=== PATIENT | female | born 1955 | race American Indian/Alaskan Native ===

== ENCOUNTER 2017-04-07 09:41 | Emergency (ER) | payer OTHER ==
[2017-04-07 10:24] VITALS: BP 128/88
[2017-04-07 10:53] LABS: Basophils % (Auto) 0.4 % (0.0-1.8); Eosinophils % (Auto) 0.5 % (0.0-4.3); Hematocrit 38.3 % (30.3-42.9); Hemoglobin 13.3 gm/dl (10.1-14.3); Mean Corpuscular HGB Conc 35 % (30-34); Mean Corpuscular Hemoglobin 32 pg (28-32); Mean Corpuscular Volume 92 fl (79-97); Platelet Count 293 K/mm3 (140-440); Red Blood Count 4.18 M/mm3 (3.65-5.03); Red Cell Distribution Width 12.8 % (13.2-15.2); White Blood Count 8.1 K/mm3 (4.5-11.0)
[2017-04-07 11:05] LABS: Anion Gap 21 mmol/L; BUN/Creatinine Ratio 11; Blood Urea Nitrogen 8 mg/dL (7-17); Calcium 9.5 mg/dL (8.4-10.2); Carbon Dioxide 27 mmol/L (22-30); Chloride 99.3 mmol/L (98-107); Glucose 97 mg/dL (65-100); Potassium 4.3 mmol/L (3.6-5.0); Sodium 143 mmol/L (137-145)
== END 2017-04-07 10:31 | disposition left against medical advice (07) ==
LOC: ED 09:41
DX: R07.9 Chest pain, unspecified (principal); Z53.21 Procedure and treatment not carried out due to patient leaving prior to being seen by health care provider
CPT/HCPCS: 36415; 80048; 84484; 85025; 93005; 93010

== ENCOUNTER 2017-07-11 07:50 | Outpatient (CLI) | payer OTHER ==
--- NOTE | 2017-07-11 09:17 | Mammography Report ---
BILATERAL MAMMOGRAM: FINDINGS: The breast tissue is heterogeneously dense, which could obscure detection of small masses (approximately 50%-75% glandular). No mass, distortion, suspicious calcification, or skin change is seen. No significant change when compared to prior exam in March 2016. CAD was utilized. IMPRESSION: Negative mammogram. There is no mammographic evidence of malignancy. RECOMMENDATION: Follow-up per ACS guidelines. BI-RADS CATEGORY: 1 = Negative ACR BI-RADS MAMMOGRAPHIC CODES: 0 = Needs additional imaging evaluation; 1 = Negative; 2 = Benign; 3 = Probably benign; 4 = Suspicious; 5 = Malignant; 6 = Known biopsy-proven malignancy COMMENT: 1. Dense breast tissue, i.e., adenosis, fibrocystic changes, etc., may obscure an underlying neoplasm. 2. Approximately 10% of cancers are not detected with mammography. 3. A negative mammography report should not delay biopsy if a clinically suspicious mass is present. COMMENT: Patient follow-up letters are generated in [facility].
== END 2017-07-11 07:51 | disposition home or self-care (01) ==
LOC: MAMMO 07:50
PROVIDERS: ATTEND Family Medicine Adult Medicine
DX: Z12.31 Encounter for screening mammogram for malignant neoplasm of breast (principal)
CPT/HCPCS: 77067

== ENCOUNTER 2017-10-23 10:54 | Outpatient (CLI) | payer OTHER ==
--- NOTE | 2017-10-23 14:54 | Magnetic Resonance Report ---
MRI LUMBAR SPINE WITHOUT CONTRAST HISTORY: Low back pain. TECHNIQUE: axial T1, T2. sagittal T1,T2, STIR. COMPARISON: none. FINDINGS: The conus terminates at L1-2. No signal abnormality or mass. The cauda equina is within normal limits. No central canal stenosis. Normal height and alignment of the lumbar vertebra. The facet joints are in appropriate relationship. Minimal arthritic changes are noted throughout the facet joints. Normal bone marrow signal. No acute fracture or suspicious bone lesion. There is mild disc desiccation throughout the lumbar region. Mild disc space narrowing at L5-S1. L1-2: No significant abnormality. L2-3: No significant abnormality. L3-4: No significant abnormality. L4-5: No significant abnormality. L5-S1: Mild disc space narrowing is again noted. Mild diffuse posterior bulging disc is identified. There is mild bilateral neural foraminal narrowing estimated at 25% on the right and 50% on the left. IMPRESSION: Lumbar spondylosis as described. L5-S1 is the most affected level. No evidence for fracture, malalignment or bone lesion.
== END 2017-10-23 10:55 | disposition home or self-care (01) ==
LOC: MRI 10:54
PROVIDERS: ATTEND Internal Medicine Adolescent Medicine
DX: M48.07 Spinal stenosis, lumbosacral region (principal); M51.27 Other intervertebral disc displacement, lumbosacral region; M47.897 Other spondylosis, lumbosacral region
CPT/HCPCS: 72148

== ENCOUNTER 2018-07-31 08:24 | Outpatient (CLI) | payer OTHER ==
--- NOTE | 2018-08-01 14:07 | Mammography Report ---
BILATERAL DIGITAL SCREENING MAMMOGRAM with CAD: 07/31/18 08:24:00 CLINICAL: Routine screening. COMPARISON:07/11/17 FINDINGS: The breasts are heterogeneously dense, which may obscure small masses. A spiculated left focal asymmetry requires additional imaging. Large benign left calcifications and small benign heavily calcified masses. No architectural distortion or suspicious calcifications.The right breast is negative with a 1 cm heavily calcified lower outer posterior benign mass. IMPRESSION: Left asymmetry requiring further workup. BI-RADS CATEGORY: 0 -- Additional Imaging Evaluation Required RECOMMENDATION: Recall for left LM and MLO and CC spot magnification views and left breast ultrasound. ACR BI-RADS MAMMOGRAPHIC CODES: 0 = Needs additional imaging evaluation; 1 = Negative; 2 = Benign; 3 = Probably benign; 4 = Suspicious; 5 = Malignant; 6 = Known biopsy-proven malignancy COMMENT: 1. Dense breast tissue, i.e., adenosis, fibrocystic changes, etc., may obscure an underlying neoplasm. 2. Approximately 10% of cancers are not detected with mammography. 3. A negative mammography report should not delay biopsy if a clinically suspicious mass is present. COMMENT: Patient follow-up letters are generated via our [employer] application.
== END 2018-07-31 08:25 | disposition home or self-care (01) ==
LOC: MAMMO 08:24
PROVIDERS: ATTEND Family Medicine Adult Medicine
DX: Z12.31 Encounter for screening mammogram for malignant neoplasm of breast (principal); Z90.49 Acquired absence of other specified parts of digestive tract
CPT/HCPCS: 77067

== ENCOUNTER 2019-03-06 09:58 | Outpatient (CLI) | payer OTHER ==
--- NOTE | 2019-03-06 16:34 | Ultrasound Report ---
LEFT DIGITAL DIAGNOSTIC MAMMOGRAM WITH CAD -- 03/06/2019 LEFT LIMITED BREAST ULTRASOUND INDICATION: Follow-up asymmetry. TECHNIQUE: Digital left mammographic imaging was performed. Spot compression and magnification views were obtained. This examination was interpreted with the benefit of Computer-Aided Detection (CAD) trice siddiqui. COMPARISON: 07/31/2018 screening mammogram. FINDINGS: Breast Density: There are scattered areas of fibroglandular density. MAMMOGRAPHIC FINDINGS: The previously identified spiculated asymmetry demonstrates satisfactory effac ement with spot magnification. Rolled CC and lateral views are negative. ULTRASOUND FINDINGS: Targeted ultrasound evaluation was performed of the area of interest. Ultrasou nd of the left breast was performed from 9:00 to 12:00 and demonstrated several solid hypoechoic shad owing masses which appear to correlate with calcified oil cysts on the mammogram. They measure 7 x 6 x 4 mm, 9 x 8 x 6 mm and 4 x 3 x 6 mm. The certified nuclear medicine technologist also reported that there is an obv ious palpable lump in the area of interest in the upper outer quadrant. IMPRESSION: A suspicious palpable lump in the upper outer quadrant which may or may not correlate wit h several areas of benign fat necrosis. Recommend consultation with a breast surgeon to determine if biopsy is indicated based on palpable findings. Follow up recommendation: Surgical consult BI-RADS Category 4: Suspicious for Malignancy. A "normal" or negative report should not discourage follow up or biopsy of a clinically significant f inding. A written summary of these findings will be mailed to the patient. The patient will be entered into a mammography reporting system which will generate a reminder letter for the patient's next appointmen t at the appropriate interval. According to the [employer], yearly mammograms are recommended starting at age 40 and continuing as long as a woman is in good health. Breast MRI is recommended for women with an jenna roximately 20-25% or greater lifetime risk of breast cancer, including women with a strong family his tory of breast or ovarian cancer and women who have been treated for Hodgkin's disease. Signer Name: Eugene Alegria MD Signed: 03/06/2019 4:29 PM Workstation Name: [id number]
== END 2019-03-06 09:59 | disposition home or self-care (01) ==
LOC: MAMMO 09:58
PROVIDERS: ATTEND Family Medicine Adult Medicine
DX: R92.8 Other abnormal and inconclusive findings on diagnostic imaging of breast (principal)

== ENCOUNTER 2019-04-11 12:56 | Outpatient (CLI) | payer OTHER ==
--- NOTE | 2019-04-11 15:21 | Ultrasound Report ---
ULTRASOUND-GUIDED NEEDLE CORE BIOPSY LEFT BREAST WITH CLIP PLACEMENT CLINICAL: Left palpable breast mass at 11:00 7 cm from the nipple FINDINGS: The procedure was explained to the patient and informed consent was obtained. Ultrasound demonstrated a palpable mass at 11:00 7 cm from the nipple. The mass is predominantly hype rechoic. There is a central hypoechoic component with shadowing. I marked the breast with a felt tip marker and a timeout was called. The skin was prepped with Chloro -Prep and anesthetized with 1% lidocaine. Needle core biopsy was performed through small dermatotomy using ultrasound guidance, 2% lidocaine wi th epinephrine for deep anesthesia and a 14-gauge Achieve biopsy device. 5 cores were obtained and pl aced in formalin. A clip was deployed within the lesion. The patient tolerated the procedure well and there were no apparent complications. Hemostasis was ach ieved with minimal effort and a sterile dressing was applied. A post procedure mammogram demonstrated concordant clip deployment. She left the department in good c ondition and was given instructions for wound care and follow-up. IMPRESSION: Uncomplicated ultrasound guided needle core biopsy with clip placement left breast. Signer Name: Eugene Alegria MD Signed: 04/11/2019 3:17 PM Workstation Name: [id number]
--- NOTE | 2019-04-11 15:24 | Mammography Report ---
LEFT DIGITAL DIAGNOSTIC MAMMOGRAM CLINICAL: For clip placement after ultrasound-guided needle biopsy. COMPARISON: 03/06/2019 FINDINGS: A biopsy clip is now identified at 11:00 and correlates with a mammographic asymmetry in th e area with several heavily calcified oil cysts. IMPRESSION: Concordant clip deployment. Signer Name: Eugene Alegria MD Signed: 04/11/2019 3:20 PM Workstation Name: [id number]
== END 2019-04-11 12:57 | disposition home or self-care (01) ==
LOC: SPVWC 12:56
PROVIDERS: ATTEND Surgery
DX: N63.22 Unspecified lump in the left breast, upper inner quadrant (principal); C50.212 Malignant neoplasm of upper-inner quadrant of left female breast; Z79.899 Other long term (current) drug therapy; Z90.49 Acquired absence of other specified parts of digestive tract
CPT/HCPCS: 19083; 77065; 88305; 88342; 88361; 88368; A4648

== ENCOUNTER 2019-05-01 10:23 | Outpatient (CLI) | payer OTHER ==
--- NOTE | 2019-05-02 09:55 | Magnetic Resonance Report ---
BILATERAL BREAST MR WITHOUT AND WITH GADOLINIUM INDICATION: Newly diagnosed left breast cancer. Status post left ultrasound-guided needle biopsy with pathology demonstrating invasive lobular carcinoma, ER/MS positive, HER-2 equivocal (pen ding FISH) and Ki-67 25%. COMPARISONS: 07/31/2018 and 03/06/2019 and 04/11/2019 mammograms TECHNIQUE: Axial 1.0 mm T1 without, axial high-resolution 2.0 mm T2 and axial 1.0 mm dynamic vibrant high-resolution postcontrast T1 fat saturation sequences on a 1.5 Cailin magnet. The examination was p erformed with an 8-channel dedicated [place] breast coil. Post-processing with CAD and subtraction was performed on an [employer] workstation. 13.0 cc of MultiHance was injected without incident for the c ontrast portion of the exam. Consent was obtained prior to the administration of the contrast. FINDINGS: RIGHT BREAST: Minimal background parenchymal enhancement. No mass or suspicious enhancement. No suspi cious right axillary or right internal mammary lymph nodes. LEFT BREAST: Minimal background parenchymal enhancement. The known cancer is a heterogeneously enhanc ing lesion in the upper inner quadrant 8.5 cm from the nipple. It consists of a 13 mm mass along with multiple foci of nonmass enhancement. Together the mass and nonmass enhancement measures approximate ly 3.0 x 2.3 x 1.1 cm. The predominant pattern of enhancement is a peak enhancement of 167%, 28% type I persistent, 72% type II plateau an 0% type III washout waveforms. The 13 mm mass demonstrates 93% type I persistent, 7% type II plateau an 0% type III washout waveforms. The biopsy clip is at the ant erior aspect of the lesion and the mass is at the posterior aspect of the lesion. The mass is also id entified mammographically. No other mass or suspicious enhancement. No suspicious left axillary or le ft internal mammary lymph nodes. IMPRESSION: 1. Known left breast cancer measuring 3.0 x 2.3 x 1.1 cm. Recommend bracketed wire localization at th e time of surgical excision to include the anterior biopsy clip and the posterior mammographic mass. 2. No other suspicious lesion of either breast. 3. No suspicious lymph nodes. BI-RADS Category 6: Known cancer Signer Name: Eugene Alegria MD Signed: 05/02/2019 9:50 AM Workstation Name: [id number]
== END 2019-05-01 10:24 | disposition home or self-care (01) ==
LOC: SPVIMAG 10:23
PROVIDERS: ATTEND Surgery
DX: C50.212 Malignant neoplasm of upper-inner quadrant of left female breast (principal); Z90.49 Acquired absence of other specified parts of digestive tract
CPT/HCPCS: A9577; C8908; 77049

== ENCOUNTER 2019-05-29 06:20 | Day surgery (SDC) | payer OTHER ==
[~2019-05-29 06:20] MED LIST: CELECOXIB 200 MG CAP PO NR; GABAPENTIN 300 MG CAP PO NR; LACTATED RINGERS 1,000 ML IV SCH; WATER FOR IRRIG STERILE 1,500 ML BOTTLE IR ONE; ceFAZolin/Water 2 GM/20 ML 2 GM/20 ML SYRINGE IV NR; fentaNYL 100 MCG/2 ML INJ IV PRN
[2019-05-29] MEDS ORDERED: BACTERIOSTATIC SODIUM CHLORIDE 0.9% 30 ML VIAL INFILTRATI ONE (07:05)
--- NOTE | 2019-05-29 07:16 | Anesthesia Day of Surgery ---
Anesthesia Day of Surgery - Day of Surgery Patient Examined: Yes Patient H&P Reviewed: Yes Patient is NPO: Yes
--- NOTE | 2019-05-29 07:22 | Anesthesia Consultation ---
Anesthesia Consult and Med Hx Date of service: 05/29/19 - Airway Anesthetic Teeth Evaluation: Good, Partials ROM Head & Neck: Adequate Mental/Hyoid Distance: Adequate Mallampati Class: Class I Intubation Access Assessment: Good - Pre-Operative Health Status ASA Pre-Surgery Classification: ASA2 Proposed Anesthetic Plan: General Nerve Block: PEC - Central Nervous System Hx Back Pain: Yes (LUMBER; SCIATICA) Hx Psychiatric Problems: Yes (Anxiety) - Gastrointestinal Hx Gastroesophageal Reflux Disease: Yes - Hematic Hx Sickle Cell Disease: Yes (TRAIT) - Other Systems Hx Cancer: Yes - Additional Comments Anesthesia Medical History Comments: +Medical clearance
[2019-05-29] MEDS ORDERED: LIDOCAINE (1%) 10 MG/1 ML VIAL 20 ML MDV ONE (07:38)
[2019-05-29] MEDS ORDERED: METHYLENE BLUE 50 MG/10 ML AMP ONE (07:43)
[2019-05-29] MEDS ORDERED: SODIUM CHLORIDE P/F VIAL 10 ML 10 ML ONE (07:43)
[2019-05-29] MEDS ORDERED: KETOROLAC 30 MG/1 ML INJ ONE (08:00)
[2019-05-29] MEDS ORDERED: ACETAMINOPHEN 325 MG TAB PO ONE (08:00)
[2019-05-29] MEDS ORDERED: MAGNESIUM OXIDE 400 MG TAB PO ONE (08:00)
[2019-05-29] MEDS ORDERED: BUPIVACAINE-EPINEPHRINE/PF 0.25%-1:200,000 (30 ML) VIAL INFILTRATI ONE (08:27)
[2019-05-29] MEDS: MIDAZOLAM 2 MG/2 ML INJ IV NR ×2 (08:29→08:34)
[2019-05-29] MEDS ORDERED: LIDOCAINE (1%) 10 MG/1 ML VIAL 20 ML MDV INFILTRATI ONE (08:30)
[2019-05-29] MEDS ORDERED: MIDAZOLAM 2 MG/2 ML INJ ONE (08:39)
[2019-05-29] MEDS ORDERED: LIDOCAINE MPF (2%) 20 MG/1 ML VIAL 5 ML ONE (08:39)
[2019-05-29] MEDS ORDERED: HYDROmorphone 1 MG/1 ML INJ ONE ×2 (08:39→12:13)
[2019-05-29] MEDS ORDERED: fentaNYL 100 MCG/2 ML INJ ONE (08:39)
[2019-05-29] MEDS ORDERED: PROPOFOL 200 MG/20 ML VIAL IV ONE (08:39)
[2019-05-29] MEDS ORDERED: ROCURONIUM 50 MG/5 ML INJ IV ONE (08:39)
[2019-05-29] MEDS ORDERED: METOCLOPRAMIDE 10 MG/2 ML INJ ONE (08:40)
[2019-05-29] MEDS ORDERED: dexAMETHasone 20 MG/5 ML VIAL ONE (08:40)
[2019-05-29] MEDS ORDERED: ONDANSETRON 4 MG/2 ML INJ ONE (08:40)
[2019-05-29] MEDS ORDERED: SODIUM CHLORIDE 0.9% P/F 10 ML VIAL INFILTRATI ONE (09:31)
[2019-05-29] MEDS ORDERED: METHYLENE BLUE 50 MG/10 ML AMP IRRIGATION ONE (09:31)
[2019-05-29] MEDS ORDERED: ePHEDrine SULFATE 50 MG/1 ML INJ ONE (10:12)
--- NOTE | 2019-05-29 10:12 | Mammography Report ---
NEEDLE LOCALIZATION AND HOOKWIRE PLACEMENT LEFT BREAST INDICATION: LT BREAST CANCER. COMPARISON: 04/11/2019 mammogram and 05/01/2019 Breast MRI FINDINGS: The skin was prepped with chlorhexidine. Using mammographic guidance and 1% lidocaine for local anest hesia, 7.5 cm and 5.0 cm Irwin II hookwires were placed from a lateral approach to bracket a known cancer with a localizer clip and a more posterior suspicious mass which was identified by MRI. Satis factory placement was confirmed with orthogonal views. Hookwires were deployed and needles were remov ed. A sterile dressing was applied. The patient experienced a mild vasovagal reaction during the procedure but otherwise tolerated the pr ocedure well and there were no complications. She was transported to the surgical suite in good condi tion. IMPRESSION: Successful and uncomplicated hookwire placement with bracketing of a known cancer and a second suspic ious mass by MRI. Signer Name: Eugene Alegria MD Signed: 05/29/2019 10:07 AM Workstation Name: [id number]
[2019-05-29] MEDS ORDERED: WATER FOR IRRIG STERILE 1,500 ML BOTTLE IR ONE (10:22)
[2019-05-29] MEDS ORDERED: LACTATED RINGERS 1,000 ML ONE (10:35)
[2019-05-29] MEDS ORDERED: GLYCOPYRROLATE 0.4 MG/2 ML INJ ONE (11:45)
[2019-05-29] MEDS ORDERED: NEOSTIGMINE 10MG/10 ML INJ MDV ONE (11:45)
--- NOTE | 2019-05-29 11:49 | Mammography Report ---
SPECIMEN RADIOGRAPH LEFT BREAST INDICATION: POST EXC BX. . Left breast cancer. COMPARISON: 04/11/2019 mammogram and 05/01/2019 MRI FINDINGS: The targeted lesions with a single localizer clip and 2 hook wires are identified within the specimen . IMPRESSION: Excision of the targeted lesions. Signer Name: Eugene Alegria MD Signed: 05/29/2019 11:45 AM Workstation Name: [id number]
--- NOTE | 2019-05-29 12:04 | Operative Report ---
Operative Report Operative Report: Operative Report: May 29, 2019 Preoperative diagnosis: Left breast cancer of the upper inner quadrant Postoperative diagnosis: Same Procedure: Left needle localization partial mastectomy of the upper inner quadrant and SLNB Surgeon: Kena Araujo MD Transit Department Clerk: Shweta Yanez MD Anesthesia: General Findings: Left wires and clip present within radiograph specimen; x1 SLN Complications: None EBL: Less than 50 ml Disposition: PACU in good condition Indications for operative procedure: This is a 63 year old lady with newly diagnosed left breast cancer of the upper inner quadrant, ILCA Stage II [id number] ER/WI positive. Recommendations are to proceed with breast conservation with bracketing of area of known cancer and asymmetry on mammogram correlating to breast MRI. Radiology bracketed areas of cancer. She understands the role of adjuvant radiation therapy and Oncotype DX will be obtained by medical oncology. She wished to proceed with the above procedure. Procedure in detail: The patient was taken to radiology for wire placement for localization known area of cancer. Anesthesia placed left pectoral block. Patient was then taken to the operating room. Gen. anesthesia was administered. The left nipple was injected with radioisotope and 1 cc of methylene blue dye. Left breast and axilla were prepped and draped in the normal sterile operative fashion. The wires were identified. Timeout was performed. Gamma probe was inserted into the axilla. The area of hot spot was identified. A left axillary incision was made with a 15 blade knife with dissection taken down to the subcutaneous tissues. The axillary fascia was opened with the Bovie cautery. 1 SLN was identified. No additional remaining counts were present. Lymph node was sent to pathology for permanent processing. Hemostasis was obtained in the left axillary cavity. Axillary cavity was appropriately irrigated and suctioned. Hemostasis was noted. Axillary fascia was approximated and closed using interrupted 3-0 Vicryl and the skin brought together and closed using a running 4-0 Monocryl followed by skin affix. Attention was then taken towards the left breast. Ultrasound was used to michael the area of incison with findings of known left breast cancer around the 11:00 position 7 cm from the nipple. A 11:00 breast incision was made with a 15 blade knife and dissection taken down to subcutaneous tissues. First began raising of the superior flap with removal of the wires from the skin with dissection take down to the pectoralis muscle, followed by raising of the inferior flap, medial flap and lateral flap with all flaps taken down to the pectoralis muscle. The breast area of concern was appropriately removed posteriorly from the pectoralis muscle with the aid of the Bovie cautery. The wires were not encountered. Specimen was marked and then sent to pathology and radiology; radiograph specimen with wires and clip present. Breast cavity was irrigated and hemostasis was obtained. The posterior deep breast tissues were approximated and closed using interrupted 3-0 Vicryl. The subcutaneous tissues were approximated and closed using interrupted 3-0 Vicryl followed by closing of the skin with a running 4-0 Monocryl and skin affix. The patient tolerated surgery very well and she was awaken from anesthesia without any complication and transported to PACU in good condition.
--- NOTE | 2019-05-29 12:05 | Short Stay Summary ---
Short Stay Documentation Date of service: 05/29/19 - History H&P: obtained from office - Allergies and Medications Current Medications: Allergies No Known Allergies Allergy (Verified 05/28/19 10:31) Home Medications Medication Instructions Recorded Confirmed Last Taken Type ALPRAZolam [Xanax TAB] 0.5 mg PO BID PRN 05/28/19 05/29/19 05/22/19 History Lycopene/Lutein/Fruit Extracts 1 each PO DAILY 05/28/19 05/29/19 05/27/19 History [Fruit & Vegetable Daily Sftgel] Meloxicam [Mobic] 15 mg PO DAILY 05/28/19 05/29/19 05/25/19 History Potassium Chloride [K-Dur] 10 meq PO QDAY 05/28/19 05/29/19 05/27/19 History Zolpidem Tartrate [Zolpimist] 5 mg PO QHS PRN 05/28/19 05/29/19 05/22/19 History traMADoL [Ultram] 50 mg PO Q6HR PRN 05/28/19 05/29/19 05/28/19 History HYDROcodone/APAP 5-325 [[place] 1 each PO Q6HR PRN #12 tablet 05/29/19 Unknown Rx 5/325] Active Medications Celecoxib (Celebrex) 200 mg PO PREOP NR Stop: 05/29/19 23:00 Last Admin: 05/29/19 08:13 Dose: 200 mg Documented by: Fentanyl (Sublimaze) 100 mcg IV ONCE PRN PRN Reason: sedation for nerve block Last Admin: 05/29/19 08:30 Dose: 100 mcg Documented by: Gabapentin (Gabapentin) 300 mg PO PREOP NR Stop: 05/29/19 23:00 Last Admin: 05/29/19 08:13 Dose: 300 mg Documented by: Lactated Ringer's (Lactated Ringers) 1,000 mls @ 100 mls/hr IV DIRECT PARTH Last Admin: 05/29/19 08:14 Dose: 100 mls/hr Documented by: Cefazolin Sodium (Ancef/Sterile Water 2 Gm/20 Ml) 2 gm in 20 mls @ 80 mls/hr IV PREOP NR; Protocol Stop: 05/29/19 23:00 Midazolam HCl (Versed) 2 mg IV PREOP NR Stop: 05/29/19 23:00 Last Admin: 05/29/19 08:34 Dose: 2 mg Documented by: - Brief post op/procedure progress note Date of procedure: 05/29/19 Pre-op diagnosis: Left Breast Cancer Post-op diagnosis: same Procedure: Left Needle Localization Partial Mastectomy, [place] Lymph Node Biopsy Anesthesia: JEANINE Surgeon: HORACE JOSÉ Business Continuity Strategy Director: EMMA CLARK Estimated blood loss: minimal Pathology: list Specimen disposition: to lab Condition: stable - Disposition Condition at discharge: Stable Disposition: DC-01 TO HOME OR SELFCARE Short Stay Discharge Plan Activity: no driving until cleared by PCP Weight Bearing Status: Full Weight Bearing Diet: regular Wound: keep clean and dry, per your surgeon's advice (Can shower after 48 hours; No sitting in standing water - no baths, no pools, no lakes) Special Instructions: no heavy lifting Follow up with: HORACE JOSÉ MD [Staff Physician] - 7 Days Prescriptions: HYDROcodone/APAP 5-325 [[place] 5/325] 1 each PO Q6HR PRN #12 tablet PRN Reason: Pain
[2019-05-29] MEDS: HYDROmorphone 1 MG/1 ML INJ IV PRN ×3 (12:14→12:37)
[2019-05-29] MEDS ORDERED: HYDROcodone/ACETAMINOPHEN 5-325 MG TAB PO PRN (13:01)
[2019-05-29] MEDS ORDERED: HYDROcodone/ACETAMINOPHEN 5-325 MG TAB ONE (13:06)
[2019-05-29 13:24] VITALS: BP 170/80
--- NOTE | 2019-05-29 15:07 | Post Anesthesia Evaluation ---
- Post Anesthesia Evaluation Patient Participated: Yes Airway Patent: Yes Stable Respiratory Function: Yes Nausea/Vomiting: No Temp > 96.8F: Yes Pain Manageable: Yes Adequeate Hydration: Yes Anesthesia Complications: No
== END 2019-05-29 06:21 | disposition home or self-care (01) ==
LOC: OR 06:20
PROVIDERS: ATTEND Surgery
DX: C50.212 Malignant neoplasm of upper-inner quadrant of left female breast (principal); I89.8 Other specified noninfective disorders of lymphatic vessels and lymph nodes; K21.9 Gastro-esophageal reflux disease without esophagitis; F41.9 Anxiety disorder, unspecified; M19.90 Unspecified osteoarthritis, unspecified site; Z90.49 Acquired absence of other specified parts of digestive tract; Z98.890 Other specified postprocedural states; Z96.641 Presence of right artificial hip joint; Z79.899 Other long term (current) drug therapy; Z86.2 Personal history of diseases of the blood and blood-forming organs and certain disorders involving the immune mechanism
CPT/HCPCS: 19281; 19301; 38525; 38792; 76098; 78800; 88307; 88311; 88341; 88342; A9541; J0690; J1100; J1170; J1885; J2250; J2405; J2704; J2710; J2765; J3010; J7120; Q9968; 64450; 88333

== ENCOUNTER 2019-05-31 13:28 | Emergency (ER) | payer OTHER ==
[2019-05-31] MEDS ORDERED: SODIUM CHLORIDE 0.9% 1000 ML IV SOLN IV ONE (14:14)
[2019-05-31] MEDS ORDERED: ACETAMINOPHEN 325 MG TAB PO ONE (14:16)
[2019-05-31] MEDS ORDERED: ONDANSETRON 4 MG/2 ML INJ IV ONE (14:26)
[2019-05-31] MEDS ORDERED: HYDROmorphone 1 MG/1 ML INJ IV ONE ×2 (14:26→16:41)
[2019-05-31 14:43] LABS: Basophils % (Auto) 0.2 % (0.0-1.8); Eosinophils % (Auto) 0.2 % (0.0-4.3); Hematocrit 37.9 % (30.3-42.9); Hemoglobin 13.1 gm/dl (10.1-14.3); Lymphocytes # (Auto) 0.3 K/mm3 (1.2-5.4); Lymphocytes % (Auto) 4.7 % (13.4-35.0); Mean Corpuscular HGB Conc 35 % (30-34); Mean Corpuscular Volume 97 fl (79-97); Monocytes # (Auto) 0.4 K/mm3 (0.0-0.8); Monocytes % (Auto) 5.7 % (0.0-7.3); Platelet Count 253 K/mm3 (140-440); Red Blood Count 3.92 M/mm3 (3.65-5.03)
--- NOTE | 2019-05-31 14:45 | Emergency Department Report ---
ED Fever HPI - General Chief Complaint: Pain General Stated Complaint: LT ARM PAIN Time Seen by Provider: 05/31/19 14:10 Source: patient Exam Limitations: no limitations - History of Present Illness Initial Comments: 63-year-old female with a past medical history of breast cancer status post recent surgery and sickle cell trait presents to the hospital complaining of left arm pain, cough, and headache. Fever noted upon arrival. Patient states she's been feeling feverish since yesterday. On May 29 (2 days ago) patient had a left needle localized partial mastectomy and sentinel node biopsy. Last night she started to have a dry cough, frontal headache, sore throat related to coughing, and feeling warm. She did not receive a flu shot this season. Denies dysuria, vomiting or diarrhea. Her prescribed pain medication makes her feel nauseated. PMD: Dr. Mk Metcalf. Breast surgeon: Dr. Araujo ED Review of Systems ROS: Stated complaint: LT ARM PAIN Other details as noted in HPI Comment: All other systems reviewed and negative ED Past Medical Hx - Past Medical History Previous Medical History?: Yes Hx of Cancer: Yes (Breast, cyst removed in Left breast) Hx Sickle Cell Disease: Yes (TRAIT) Hx Arthritis: Yes (LOWER BACK AND L KNEE) Hx HIV: No Additional medical history: "trouble sleeping"back pain,hip pain - Surgical History Past Surgical History?: Yes Hx Cholecystectomy: Yes (EMERGENCY) Additional Surgical History: R shoulder sx feb 2017 - Social History Smoking Status: Never Smoker Substance Use Type: None - Medications Home Medications: Home Medications Medication Instructions Recorded Confirmed Last Taken Type ALPRAZolam [Xanax TAB] 0.5 mg PO BID PRN 05/28/19 05/29/19 05/22/19 History Lycopene/Lutein/Fruit Extracts 1 each PO DAILY 05/28/19 05/29/19 05/27/19 History [Fruit & Vegetable Daily Sftgel] Meloxicam [Mobic] 15 mg PO DAILY 05/28/19 05/29/19 05/25/19 History Potassium Chloride [K-Dur] 10 meq PO QDAY 05/28/19 05/29/19 05/27/19 History Zolpidem Tartrate [Zolpimist] 5 mg PO QHS PRN 05/28/19 05/29/19 05/22/19 History traMADoL [Ultram] 50 mg PO Q6HR PRN 05/28/19 05/29/19 05/28/19 History HYDROcodone/APAP 5-325 [[place] 1 each PO Q6HR PRN #12 tablet 05/29/19 Unknown Rx 5/325] Benzonatate [Tessalon Perles] 100 mg PO Q8HR PRN #20 capsule 05/31/19 Unknown Rx Ibuprofen [Motrin] 800 mg PO Q8HR PRN #30 tablet 05/31/19 Unknown Rx Ondansetron [Zofran Odt] 4 mg PO Q8HR PRN #20 tab.rapdis 05/31/19 Unknown Rx ED Physical Exam - General Limitations: No Limitations - Other Other exam information: General: No acute distress Head: Atraumatic Eyes: normal appearance ENT: Moist mucous membranes, no post pharyngeal exudates Neck: Normal appearance, no midline tenderness Chest: Mild bruising redness nonblanching to the left upper lateral chest wall with surgical wound without dehiscence or drainage. Left upper lateral breast wound without any erythema, warmth, drainage, or wound dehiscence. CV: Regular rate and rhythm Abdomen: Soft, normal bowel sounds, nontender, nondistended, no rebound or guarding Back: Normal inspection Extremity: Normal inspection infection, full range of motion, mild tenderness to left axilla without redness Neuro: Alert O x 3, no facial asymmetry, speech clear, no gross motor sensory deficit Psych: Appropriate behavior Skin: No rash. ED Course Vital Signs 05/31/19 05/31/19 05/31/19 13:35 13:49 14:00 Temperature 102.7 F H Pulse Rate 107 H 109 H Respiratory 18 15 20 Rate Blood Pressure 174/91 167/87 O2 Sat by Pulse 99 97 99 Oximetry 05/31/19 05/31/19 05/31/19 14:15 14:30 15:00 Temperature Pulse Rate 103 H 100 H 98 H Respiratory 22 19 19 Rate Blood Pressure 165/82 175/85 169/80 O2 Sat by Pulse 98 98 98 Oximetry 05/31/19 05/31/19 05/31/19 15:15 15:30 15:47 Temperature Pulse Rate 98 H 99 H 96 H Respiratory 20 21 14 Rate Blood Pressure 155/80 160/75 160/75 O2 Sat by Pulse 97 97 96 Oximetry 05/31/19 05/31/1905/31/19 15:49 16:15 16:30 Temperature 100.8 F H Pulse Rate 97 H 101 H Respiratory 16 19 Rate Blood Pressure 148/74 152/77 O2 Sat by Pulse 98 98 Oximetry 05/31/19 05/31/19 05/31/19 16:55 17:00 17:30 Temperature 99.8 F H Pulse Rate 88 97 H Respiratory 11 L 14 Rate Blood Pressure 151/77 158/77 O2 Sat by Pulse 97 96 Oximetry 05/31/19 05/31/19 18:00 18:02 Temperature 99.2 F Pulse Rate 94 H Respiratory 15 Rate Blood Pressure 154/74 O2 Sat by Pulse 96 Oximetry - Consultations Consultation #1: 05/31/19 17:51 case d/ dr deluca. No source of fever identfied, suggest possible post op fever due to atelectasis. No abx advised at this time since no clinical signs of cellulitis. requests pt to f/u in office as scheduled on jun 06. requests that pt have her cell number to call if issues. ED Medical Decision Making - Lab Data Result diagrams: 05/31/19 14:34 05/31/19 14:34 Lab Results 05/31/19 05/31/19 05/31/19 Range/Units 14:34 14:34 14:34 WBC 6.2 (4.5-11.0) K/mm3 RBC 3.92 (3.65-5.03) M/mm3 Hgb 13.1 (10.1-14.3) gm/dl Hct 37.9 (30.3-42.9) % MCV 97 (79-97) fl MCH 33 H (28-32) pg MCHC 35 H (30-34) % RDW 13.0 L (13.2-15.2) % Plt Count 253 (140-440) K/mm3 Lymph % (Auto) 4.7 L (13.4-35.0) % [place] % (Auto) 5.7 (0.0-7.3) % Eos % (Auto) 0.2 (0.0-4.3) % Baso % (Auto) 0.2 (0.0-1.8) % Lymph # 0.3 L (1.2-5.4) K/mm3 [place] # 0.4 (0.0-0.8) K/mm3 Eos # 0.0 (0.0-0.4) K/mm3 Baso # 0.0 (0.0-0.1) K/mm3 Seg Neutrophils % 89.2 H (40.0-70.0) % Seg Neutrophils # 5.6 (1.8-7.7) K/mm3 VBG pH (7.320-7.420) Sodium 135 L (137-145) mmol/L Potassium 3.8 (3.6-5.0) mmol/L Chloride 96.5 L (98-107) mmol/L Carbon Dioxide 23 (22-30) mmol/L Anion Gap 19 mmol/L BUN 8 (7-17) mg/dL Creatinine 0.7 (0.7-1.2) mg/dL Estimated GFR > 60 ml/min BUN/Creatinine Ratio 11 % Glucose 92 (65-100) mg/dL Lactic Acid 0.70 (0.7-2.0) mmol/L Calcium 9.2 (8.4-10.2) mg/dL Magnesium (1.7-2.3) mg/dL Total Bilirubin 0.40 (0.1-1.2) mg/dL AST 40 (5-40) units/L ALT 19 (7-56) units/L Alkaline Phosphatase 61 (35-129) units/L Total Protein 7.4 (6.3-8.2) g/dL Albumin 3.9 (3.9-5) g/dL Albumin/Globulin Ratio 1.1 % Urine Color (Yellow) Urine Turbidity (Clear) Urine pH (5.0-7.0) Ur Specific [place] (1.003-1.030) Urine Protein (Negative) mg/dL Urine Glucose (UA) (Negative) mg/dL Urine Ketones (Negative) mg/dL Urine Blood (Negative) Urine Nitrite (Negative) Urine Bilirubin (Negative) Urine Urobilinogen (<2.0) mg/dL Ur Leukocyte Esterase (Negative) Urine WBC (Auto) (0.0-6.0) /HPF Urine RBC (Auto) (0.0-6.0) /HPF U Epithel Cells (Auto) (0-13.0) /HPF Urine Bacteria (Auto) (Negative) /HPF Influenza A (Rapid) (Negative) Influenza B (Rapid) (Negative) 05/31/19 05/31/19 05/31/19 Range/Units 14:34 14:34 15:26 WBC (4.5-11.0) K/mm3 RBC (3.65-5.03) M/mm3 Hgb (10.1-14.3) gm/dl Hct (30.3-42.9) % MCV (79-97) fl MCH (28-32) pg MCHC (30-34) % RDW (13.2-15.2) % Plt Count (140-440) K/mm3 Lymph % (Auto) (13.4-35.0) % [place] % (Auto) (0.0-7.3) % Eos % (Auto) (0.0-4.3) % Baso % (Auto) (0.0-1.8) % Lymph # (1.2-5.4) K/mm3 [place] # (0.0-0.8) K/mm3 Eos # (0.0-0.4) K/mm3 Baso # (0.0-0.1) K/mm3 Seg Neutrophils % (40.0-70.0) % Seg Neutrophils # (1.8-7.7) K/mm3 VBG pH 7.424 H (7.320-7.420) Sodium (137-145) mmol/L Potassium (3.6-5.0) mmol/L Chloride (98-107) mmol/L Carbon Dioxide (22-30) mmol/L Anion Gap mmol/L BUN (7-17) mg/dL Creatinine (0.7-1.2) mg/dL Estimated GFR ml/min BUN/Creatinine Ratio % Glucose (65-100) mg/dL Lactic Acid 0.70 (0.7-2.0) mmol/L Calcium (8.4-10.2) mg/dL Magnesium 2.10 (1.7-2.3) mg/dL Total Bilirubin (0.1-1.2) mg/dL AST (5-40) units/L ALT (7-56) units/L Alkaline Phosphatase (35-129) units/L Total Protein (6.3-8.2) g/dL Albumin (3.9-5) g/dL Albumin/Globulin Ratio % Urine Color (Yellow) Urine Turbidity (Clear) Urine pH (5.0-7.0) Ur Specific [place] (1.003-1.030) Urine Protein (Negative) mg/dL Urine Glucose (UA) (Negative) mg/dL Urine Ketones (Negative) mg/dL Urine Blood (Negative) Urine Nitrite (Negative) Urine Bilirubin (Negative) Urine Urobilinogen (<2.0) mg/dL Ur Leukocyte Esterase (Negative) Urine WBC (Auto) (0.0-6.0) /HPF Urine RBC (Auto) (0.0-6.0) /HPF U Epithel Cells (Auto) (0-13.0) /HPF Urine Bacteria (Auto) (Negative) /HPF Influenza A (Rapid) (Negative) Influenza B (Rapid) (Negative) 05/31/19 05/31/19 Range/Units 15:48 Unknown WBC (4.5-11.0) K/mm3 RBC (3.65-5.03) M/mm3 Hgb (10.1-14.3) gm/dl Hct (30.3-42.9) % MCV (79-97) fl MCH (28-32) pg MCHC (30-34) % RDW (13.2-15.2) % Plt Count (140-440) K/mm3 Lymph % (Auto) (13.4-35.0) % [place] % (Auto) (0.0-7.3) % Eos % (Auto) (0.0-4.3) % Baso % (Auto) (0.0-1.8) % Lymph # (1.2-5.4) K/mm3 [place] # (0.0-0.8) K/mm3 Eos # (0.0-0.4) K/mm3 Baso # (0.0-0.1) K/mm3 Seg Neutrophils % (40.0-70.0) % Seg Neutrophils # (1.8-7.7) K/mm3 VBG pH (7.320-7.420) Sodium (137-145) mmol/L Potassium (3.6-5.0) mmol/L Chloride (98-107) mmol/L Carbon Dioxide (22-30) mmol/L Anion Gap mmol/L BUN (7-17) mg/dL Creatinine (0.7-1.2) mg/dL Estimated GFR ml/min BUN/Creatinine Ratio % Glucose (65-100) mg/dL Lactic Acid (0.7-2.0) mmol/L Calcium (8.4-10.2) mg/dL Magnesium (1.7-2.3) mg/dL Total Bilirubin (0.1-1.2) mg/dL AST (5-40) units/L ALT (7-56) units/L Alkaline Phosphatase (35-129) units/L Total Protein (6.3-8.2) g/dL Albumin (3.9-5) g/dL Albumin/Globulin Ratio % Urine Color Straw (Yellow) Urine Turbidity Clear (Clear) Urine pH 8.0 H (5.0-7.0) Ur Specific [place] 1.008 (1.003-1.030) Urine Protein <15 mg/dl (Negative) mg/dL Urine Glucose (UA) Neg (Negative) mg/dL Urine Ketones 20 (Negative) mg/dL Urine Blood Neg (Negative) Urine Nitrite Neg (Negative) Urine Bilirubin Neg (Negative) Urine Urobilinogen < 2.0 (<2.0) mg/dL Ur Leukocyte Esterase Neg (Negative) Urine WBC (Auto) < 1.0 (0.0-6.0) /HPF Urine RBC (Auto) 1.0 (0.0-6.0) /HPF U Epithel Cells (Auto) 3.0 (0-13.0) /HPF Urine Bacteria (Auto) 1+ (Negative) /HPF Influenza A (Rapid) Negative (Negative) Influenza B (Rapid) Negative (Negative) - EKG Data -: EKG Interpreted by Nd EKG shows normal: sinus rhythm, ST-T waves (no stemi) Rate: normal - Radiology Data Radiology results: report reviewed CHEST 2 VIEWS INDICATION: cough, fever. COMPARISON: None. FINDINGS: Support devices: None. Heart: Within normal limits. Lungs/Pleura: No acute air space or interstitial disease. Postbiopsy change left chest. No significant pleural effusion. IMPRESSION: No acute findings. - Medical Decision Making Patient's symptoms are improving with the ED treatment. She did receive clindamycin while awaiting ED workup the cover for ENT and skin infection. At the ED evaluation source of infection has not been identified. Patient is having viral symptoms with negative flu test. We have not identified at bacterial cause of infection at this time. Patient lacks leukocytosis, lactic acidosis, or signs of septic shock. pt will be d/mary jo home the zofran for nausea related to narcotic pain med use. Motrin will be added for pain/fever/body aches. culuturs pending. Patient will be advised to follow-up with Dr. Araujo and provided her personal cell number to contact her if any issues prior to follow-up visit. pt is also encouraged to return to the ED department if symptoms worsen. Pt denies hx of htn, possible pain related htn. - Differential Diagnosis abscess, post op infection, atelectasis, viral syndrome, cellulitis Critical Care Time: No Critical care attestation.: If time is entered above; I have spent that time in minutes in the direct care of this critically ill patient, excluding procedure time. ED Disposition Clinical Impression: Postoperative fever, Viral upper respiratory illness, Post-operative pain Disposition: TO HOME OR SELFCARE Is pt being admited?: No Does the pt Need Aspirin: No Condition: Stable Instructions: Fever in Adults (ED), Acute Wound Care (ED), Viral Syndrome (ED) Additional Instructions: Take the medication as prescribed. Follow-up with Dr. Araujo as scheduled. You may contact her directly by calling [phone]. Return if symptoms worsen as indicated by your discharge instructions. Prescriptions: Ibuprofen [Motrin] 800 mg PO Q8HR PRN #30 tablet PRN Reason: Fever >101 Benzonatate [Tessalon Perles] 100 mg PO Q8HR PRN #20 capsule PRN Reason: Cough Ondansetron [Zofran Odt] 4 mg PO Q8HR PRN #20 tab.rapdis PRN Reason: Nausea And Vomiting Referrals: HORACE ARAUJO MD [Staff Physician] - 3-5 Days PRIMARY CARE, [Primary Care Provider] - 3-5 Days Time of Disposition: 18:30
[2019-05-31] MEDS ORDERED: CLINDAMYCIN 600 MG/50 mL 600 MG/50 ML BAG IV SCH (15:00)
--- NOTE | 2019-05-31 15:14 | XRay Report ---
CHEST 2 VIEWS INDICATION: cough, fever. COMPARISON: None. FINDINGS: Support devices: None. Heart: Within normal limits. Lungs/Pleura: No acute air space or interstitial disease. Postbiopsy change left chest. No significan t pleural effusion. IMPRESSION: No acute findings. Signer Name: Amos Espinoza MD Signed: 05/31/2019 3:09 PM Workstation Name: [id number]
[2019-05-31 15:20] LABS: Alanine Aminotransferase 19 units/L (7-56); Albumin 3.9 g/dL (3.9-5); BUN/Creatinine Ratio 11; Blood Urea Nitrogen 8 mg/dL (7-17); Calcium 9.2 mg/dL (8.4-10.2); Hemolysis Index 21
[2019-05-31 16:27] LABS: Bacteria,Urine 1+ /HPF (Negative); Bilirubin,Urine NEG (Negative); Blood,Urine NEG (Negative); Color,Urine Straw (Yellow); Protein,Urine <15 mg/dL mg/dL (Negative); Urobilinogen,Urine < 2.0 mg/dL (<2.0); WBC,Urine < 1.0 /HPF (0.0-6.0)
[2019-05-31] MEDS ORDERED: KETOROLAC 30 MG/1 ML INJ IV ONE (16:41)
[2019-05-31 18:21] VITALS: BP 154/74
== END 2019-05-31 18:39 | disposition home or self-care (01) ==
LOC: ED 13:28 → EEVIPCON 13:28 → ED 18:39
DX: J39.8 Other specified diseases of upper respiratory tract (principal); R50.82 Postprocedural fever; G89.18 Other acute postprocedural pain; C50.919 Malignant neoplasm of unspecified site of unspecified female breast; D57.1 Sickle-cell disease without crisis; M19.90 Unspecified osteoarthritis, unspecified site; Z90.49 Acquired absence of other specified parts of digestive tract; Z98.890 Other specified postprocedural states; Z79.899 Other long term (current) drug therapy
CPT/HCPCS: 36415; 71046; 80053; 81001; 82140; 82805; 83735; 85025; 87040; 87086; 87400; 93005; 93010; 96365; 96375; 96376; 99284; J1170; J1885; J2405; J7030

== ENCOUNTER 2019-09-07 18:57 | Emergency (ER) | payer OTHER ==
--- NOTE | 2019-09-07 19:49 | Event Note ---
ED Screening Note ED Screening Note: The patient was seen in triage for post surgical pain to left breast s/p mastectomy AUG 19 c/o of hardness, pain and color change. no discharge. usuing sulfa based cream and unsure of allergy Labs/imaging ordered to evaluate for a cause of this complaint. Vital signs reviewed, patient awake and alert in NAD. This initial assessment/diagnostic orders/clinical plan/treatment(s) is/are subject to change based on patients health status, clinical progression and re- assessment by fellow clinical providers in the ED. Further treatment and workup at subsequent clinical providers discretion. Patient/guardian urged not to elope from the ED as their condition may be serious if not clinically assessed and m anaged. Initial orders include: evaluate breast for possible US
[2019-09-07] MEDS ORDERED: oxyCODONE /ACETAMINOPHEN 5-325MG TAB PO ONE (20:44)
[2019-09-07 21:13] LABS: Basophils # (Auto) 0.1 K/mm3 (0.0-0.1); Eosinophils % (Auto) 0.8 % (0.0-4.3); Hematocrit 30.9 % (30.3-42.9); Hemoglobin 10.4 gm/dl (10.1-14.3); Lymphocytes # (Auto) 1.9 K/mm3 (1.2-5.4); Lymphocytes % (Auto) 33.6 % (13.4-35.0); Mean Corpuscular HGB Conc 34 % (30-34); Mean Corpuscular Volume 96 fl (79-97); Monocytes # (Auto) 0.5 K/mm3 (0.0-0.8); Monocytes % (Auto) 8.3 % (0.0-7.3); Platelet Count 370 K/mm3 (140-440); Red Blood Count 3.23 M/mm3 (3.65-5.03); Red Cell Distribution Width 13.4 % (13.2-15.2)
--- NOTE | 2019-09-07 21:23 | Emergency Department Report ---
ED General Adult HPI - General Chief complaint: Urogenital-Female Stated complaint: BREAST CA, CREAM IS MAKING WOUND SWELL Time Seen by Provider: 09/07/19 19:45 Source: patient, old records reviewed Mode of arrival: Ambulatory Limitations: No Limitations - History of Present Illness Initial comments: 63-year-old female with a past medical history of breast cancer status post left mastectomy August 19, 2019 presents to the hospital complaining of concerns of infection. Initially patient was being seen by Dr. Araujo but currently her doctors are affiliated with [facility] in [facility]. Patient was just seen at [facility] ER on August 24 with concerns of left breast infection. She was prescribed sulfa Silvadene to apply to open breast wound area and and an oral antibiotic (patient cannot recall the name). Patient also has a drain at the left breast. She states that drainage was initially bloody but now it appears first aid director and amount of fluid drainage has not increased. Patient is concerned because she feels like there is a pressure in her left chest/breast area and it is more tender to palpation. She denies fevers. Patient's current doctors include Raúl Brunner with plastic reconstructive surgery and Dr. Hollie Valdez with surgical oncology affiliated with [facility] Severity scale (0 -10): 10 - Related Data Home Medications Medication Instructions Recorded Confirmed Last Taken ALPRAZolam [Xanax TAB] 0.5 mg PO BID PRN 05/28/19 05/29/19 05/22/19 Lycopene/Lutein/Fruit Extracts 1 each PO DAILY 05/28/19 05/29/19 05/27/19 [Fruit & Vegetable Daily Sftgel] Meloxicam [Mobic] 15 mg PO DAILY 05/28/19 05/29/19 05/25/19 Potassium Chloride [K-Dur] 10 meq PO QDAY 05/28/19 05/29/19 05/27/19 Zolpidem Tartrate [Zolpimist] 5 mg PO QHS PRN 05/28/19 05/29/19 05/22/19 traMADoL [Ultram] 50 mg PO Q6HR PRN 05/28/19 05/29/19 05/28/19 Previous Rx's Medication Instructions Recorded Last Taken Type HYDROcodone/APAP 5-325 [[place] 1 each PO Q6HR PRN #12 tablet 05/29/19 Unknown Rx 5/325] Benzonatate [Tessalon Perles] 100 mg PO Q8HR PRN #20 capsule 05/31/19 Unknown Rx Ibuprofen [Motrin] 800 mg PO Q8HR PRN #30 tablet 05/31/19 Unknown Rx Ondansetron [Zofran Odt] 4 mg PO Q8HR PRN #20 tab.rapdis 05/31/19 Unknown Rx Allergies Allergy/AdvReac Type Severity Reaction Status Date / Time No Known Allergies Allergy Verified 05/28/19 10:31 ED Review of Systems ROS: Stated complaint: BREAST CA, CREAM IS MAKING WOUND SWELL Other details as noted in HPI Comment: All other systems reviewed and negative ED Past Medical Hx - Past Medical History Previous Medical History?: Yes Hx of Cancer: Yes (Left breast) Hx Sickle Cell Disease: Yes (TRAIT) Hx Arthritis: Yes (LOWER BACK AND L KNEE) Hx HIV: No Additional medical history: "trouble sleeping"back pain,hip pain - Surgical History Hx Cholecystectomy: Yes Additional Surgical History: R shoulder, Right hip replacement, Right shoulder bone spur, - Social History Smoking Status: Never Smoker Substance Use Type: None - Medications Home Medications: Home Medications Medication Instructions Recorded Confirmed Last Taken Type ALPRAZolam [Xanax TAB] 0.5 mg PO BID PRN 05/28/19 05/29/19 05/22/19 History Lycopene/Lutein/Fruit Extracts 1 each PO DAILY 05/28/19 05/29/19 05/27/19 History [Fruit & Vegetable Daily Sftgel] Meloxicam [Mobic] 15 mg PO DAILY 05/28/19 05/29/19 05/25/19 History Potassium Chloride [K-Dur] 10 meq PO QDAY 05/28/19 05/29/19 05/27/19 History Zolpidem Tartrate [Zolpimist] 5 mg PO QHS PRN 05/28/19 05/29/19 05/22/19 History traMADoL [Ultram] 50 mg PO Q6HR PRN 05/28/19 05/29/19 05/28/19 History HYDROcodone/APAP 5-325 [[place] 1 each PO Q6HR PRN #12 tablet 05/29/19 Unknown Rx 5/325] Benzonatate [Tessalon Perles] 100 mg PO Q8HR PRN #20 capsule 05/31/19 Unknown Rx Ibuprofen [Motrin] 800 mg PO Q8HR PRN #30 tablet 05/31/19 Unknown Rx Ondansetron [Zofran Odt] 4 mg PO Q8HR PRN #20 tab.rapdis 05/31/19 Unknown Rx ED Physical Exam - General Limitations: No Limitations - Other Other exam information: General: No acute distress Head: Atraumatic Eyes: normal appearance ENT: Moist mucous membranes Neck: Normal appearance, no midline tenderness Chest: Clear to auscultation bilaterally. Left breast wound area with a yellowish exudate without active drainage. Patient states that this is the congealed Silvadene that cannot be removed. Patient has palpable induration areas of the left breast that are tender to palpation. Serosanguineous drainage from the left breast HERMELINDA drain CV: Regular rate and rhythm Abdomen: Soft, normal bowel sounds, nontender, nondistended, no rebound or guarding Back: Normal inspection Extremity: Normal inspection, full range of motion Neuro: Alert O x 3, no facial asymmetry, speech clear, no gross motor sensory deficit Psych: Appropriate behavior Skin: No rash ED Course Vital Signs 09/07/19 09/07/19 09/07/19 19:28 20:25 20:56 Temperature 98.8 F 98.5 F Pulse Rate 79 74 Respiratory 18 12 18 Rate Blood Pressure 142/70 Blood Pressure 127/67 [Right] O2 Sat by Pulse 100 100 Oximetry 09/07/19 09/07/19 09/07/19 21:00 21:16 21:30 Temperature Pulse Rate 74 66 63 Respiratory 14 21 16 Rate Blood Pressure 114/66 130/65 137/67 Blood Pressure [Right] O2 Sat by Pulse 100 100 100 Oximetry 09/07/19 09/07/19 09/07/19 21:45 21:56 22:00 Temperature Pulse Rate 59 L 68 Respiratory 17 18 15 Rate Blood Pressure 143/69 142/75 Blood Pressure [Right] O2 Sat by Pulse 100 100 Oximetry 09/07/19 09/07/19 09/07/19 22:15 22:30 23:00 Temperature Pulse Rate 62 67 66 Respiratory 16 18 12 Rate Blood Pressure 142/71 146/69 139/60 Blood Pressure [Right] O2 Sat by Pulse 100 100 100 Oximetry 09/07/19 23:30 Temperature Pulse Rate 69 Respiratory 17 Rate Blood Pressure 136/75 Blood Pressure [Right] O2 Sat by Pulse 100 Oximetry - Consultations Consultation #1: 09/08/19 00:53 Call placed to [facility] transfer service for consultation with patient's surgeon Chema Cosby at [phone]. At this time we have not heard back and [facility] transfer service is having difficulty identifying someone transmission and coordination engineer. I discussed this with patient. ED Medical Decision Making - Lab Data Result diagrams: 09/07/19 20:48 09/07/19 20:48 Lab Results 09/07/19 09/07/19 Range/Units 20:48 20:48 WBC 5.8 (4.5-11.0) K/mm3 RBC 3.23 L (3.65-5.03) M/mm3 Hgb 10.4 (10.1-14.3) gm/dl Hct 30.9 (30.3-42.9) % MCV 96 (79-97) fl MCH 32 (28-32) pg MCHC 34 (30-34) % RDW 13.4 (13.2-15.2) % Plt Count 370 (140-440) K/mm3 Lymph % (Auto) 33.6 (13.4-35.0) % [place] % (Auto) 8.3 H (0.0-7.3) % Eos % (Auto) 0.8 (0.0-4.3) % Baso % (Auto) 1.0 (0.0-1.8) % Lymph # 1.9 (1.2-5.4) K/mm3 [place] # 0.5 (0.0-0.8) K/mm3 Eos # 0.0 (0.0-0.4) K/mm3 Baso # 0.1 (0.0-0.1) K/mm3 Seg Neutrophils % 56.3 (40.0-70.0) % Seg Neutrophils # 3.3 (1.8-7.7) K/mm3 Sodium 137 (137-145) mmol/L Potassium 3.7 (3.6-5.0) mmol/L Chloride 100.1 (98-107) mmol/L Carbon Dioxide 24 (22-30) mmol/L Anion Gap 17 mmol/L BUN 8 (7-17) mg/dL Creatinine 0.9 (0.7-1.2) mg/dL Estimated GFR > 60 ml/min BUN/Creatinine Ratio 9 % Glucose 97 (65-100) mg/dL Calcium 9.0 (8.4-10.2) mg/dL - Radiology Data Radiology results: report reviewed CLINICAL DATA: s/p mastectomy, breast swelling and pain TECHNICAL DATA: Imaging of the left breast was performed.. FINDINGS: There is a left breast sonolucent area in the site of surgery upper aspect left breast. This have a curvilinear appearance measuring 15 cm x 1 cm, postoperative fluid collection is a concern. IMPRESSION: Probable postoperative fluid collection as noted - Medical Decision Making Patient is afebrile without leukocytosis and with a fluid collection identified on ultrasound however, patient is currently on Silvadene topical treatment as well as oral antibiotics (name unknown). At this time she continues to have drainage from HERMELINDA drain that appears to be serosanguineous and nonpurulent. Patient's breast wound site appears to be mostly congealed Silvadene at the site without active drainage. I attempted to contact patient's breast surgeon at [facility] but after 1 hour there has been no callback. I discussed this with patient and she is okay with going home and following up as scheduled on Monday. At this time I do not have any signs of severe infection or abnormality requiring admission or acute intervention. Copy of labs and ultrasound report from today will be provided to the patient so that she may take it to her for scheduled follow-up visit with her breast surgeon on Monday. Patient informed to return if any signs of fever - Differential Diagnosis Postop infection, postop healing Critical Care Time: No Critical care attestation.: If time is entered above; I have spent that time in minutes in the direct care of this critically ill patient, excluding procedure time. ED Disposition Clinical Impression: Fluid collection at surgical site, Status post mastectomy, Postoperative pain Disposition: - TO HOME OR SELFCARE Is pt being admited?: No Does the pt Need Aspirin: No Condition: Stable Instructions: Surgical Site Infections (ED) Additional Instructions: Take the medication as prescribed including your antibiotics and pain medication. Follow-up with your doctor or doctor/clinic provided. Return if symptoms worsen as indicated by your discharge instructions. Take the copy of your labs and ultrasound report provided to your doctor for follow-up on Monday as scheduled. Referrals: Raúl Brunner [Other] - 09/09/19 (Plastic reconstructive surgeon) Time of Disposition: 00:57
[2019-09-07 21:32] LABS: BUN/Creatinine Ratio 9; Blood Urea Nitrogen 8 mg/dL (7-17); Hemolysis Index 9
--- NOTE | 2019-09-07 23:33 | Ultrasound Report ---
CLINICAL DATA: s/p mastectomy, breast swelling and pain TECHNICAL DATA: Imaging of the left breast was performed.. FINDINGS: There is a left breast sonolucent area in the site of surgery upper aspect left breast. This have a c urvilinear appearance measuring 15 cm x 1 cm, postoperative fluid collection is a concern. IMPRESSION: Probable postoperative fluid collection as noted Signer Name: Haris Rao MD Signed: 09/07/2019 11:29 PM Workstation Name: [id number]
[2019-09-08 01:31] VITALS: BP 154/60
== END 2019-09-08 01:10 | disposition home or self-care (01) ==
LOC: ED 18:57
DX: G89.18 Other acute postprocedural pain (principal); L76.34 Postprocedural seroma of skin and subcutaneous tissue following other procedure; C50.912 Malignant neoplasm of unspecified site of left female breast; M17.12 Unilateral primary osteoarthritis, left knee; Z98.890 Other specified postprocedural states; Z79.899 Other long term (current) drug therapy; Z90.12 Acquired absence of left breast and nipple
CPT/HCPCS: 36415; 80048; 85025; 99284

== ENCOUNTER 2022-03-23 02:04 | Emergency (ER) | payer MEDICARE, OTHER ==
[2022-03-23 02:33] VITALS: BP 146/106
== END 2022-03-23 18:38 | disposition left against medical advice (07) ==
LOC: ED 02:04
DX: R10.9 Unspecified abdominal pain (principal); Z53.21 Procedure and treatment not carried out due to patient leaving prior to being seen by health care provider